=== PATIENT | male | born 1990 | race Caucasian/White ===

== ENCOUNTER 2019-04-05 21:36 | Emergency (ER) | payer OTHER ==
--- NOTE | 2019-04-05 21:39 | EDPHY ---
H & P Time Seen by Provider: 04/05/19 21:38 HPI/ROS: HPI: This is a 28-year-old male who presents with Chief Complaint: Left thumb laceration while at work Location: Left thumb Quality: Laceration Duration: 1 hr prior to arrival Signs and Symptoms: + bleeding, no radiation, + numbness, no weakness, no tingling, no incontinence, no decreased range of motion, no swelling, + pain, no fever Timing: Acute Severity: Moderate Context: Patient presents from [facility] with complaints of accidentally cutting his left thumb while he was at work at a [employer] with a knife prior to arrival. The laceration is located at the DI P joint and patient believes it is "down to the bone." After he cut his finger he applied direct pressure but the bleeding would not stop. Does not take any blood thinners. He complains of numbness at the tip of his left thumb. He rates his name with his right hand but performs all other activities with his left hand. Reports tetanus is current. Modifying Factors: Direct pressure Comment: ROS: A comprehensive 10 system review of systems is otherwise negative aside from elements mentioned in the history of present illness. MEDICAL/SURGICAL/SOCIAL HISTORY: Medical history: Generally healthy. Does not take any regular medications. Surgical history: Denies Social history: Employed. Drinks alcohol socially. CONSTITUTIONAL: Polite and cooperative adult white male, awake and alert, no obvious distress HEENT: Atraumatic and normocephalic, PERRL, EOMI. Nares patent; no rhinorrhea; no nasal mucosal edema. Tympanic membranes clear. Oropharynx clear, no exudate and moist pink mucosa. Airway patent. No lymphadenopathy. No meningismus. Cardiovascular: Normal S1/S2, regular rate, regular rhythm, without murmur rub or gallop. PULMONARY/CHEST: Symmetrical and nontender. Clear to auscultation bilaterally. Good air movement. No accessory muscle usage. ABDOMEN: Soft, nondistended, nontender, no rebound, no guarding, no peritoneal signs, no masses or organomegaly. No CVAT. 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 Scant amount of active bleeding noted. no clubbing , no cyanosis or edema. NEUROLOGICAL: no focal neuro deficits. GCS 15. SKIN: Warm and dry, no erythema. no rash. Good capillary refill. Source: Patient, RN/MD Exam Limitations: No limitations - Personal History Current Tetanus/Diphtheria Vaccine: Yes Current Tetanus Diphtheria and Acellular Pertussis (TDAP): Yes Constitutional: Initial Vital Signs Temperature (C) 37.2 C 04/05/19 21:38 Heart Rate 105 H 04/05/19 21:38 Respiratory Rate 16 04/05/19 21:38 Blood Pressure 158/88 H 04/05/19 21:38 O2 Sat (%) 93 04/05/19 21:38 O2 Delivery Mode Room Air Allergies/Adverse Reactions: Iodinated Contrast- Oral and IV Dye Allergy (Verified 04/05/19 21:41) Home Medications: Medication Instructions Recorded NK [No Known Home Meds] 04/05/19 Medical Decision Making Procedures: Procedure: Laceration repair. Verbal consent was obtained from the patient. The 5.5 cm, deep, simple laceration on the left thumb was anesthetized in the usual fashion using a digital block of 4 cc of 1% lidocaine without epinephrine. The wound was irrigated, draped and explored to its base with a gloved finger. There were no deep structures involved. No tendon injury was identified. The wound was repaired with #9, 4-0 Prolene. Good hemostasis was achieved and patient tolerated procedure well. Surgifoam, Xeroform and clean sterile dressing applied. The procedure was performed by myself. Procedure: Splint placement. A aluminum cage finger splint was applied. After application of the splint I returned and re-examined the patient. The splint was adequately immobilizing the joint and distal to the splint the patient's circulation and sensation was intact. ED Course/Re-evaluation: Tetanus booster up-to-date. Left thumb x-ray ordered my read shows no fracture, no foreign body, no dislocation Local anesthesia digital block provided and copiously irrigated Laceration repaired with #9 nonabsorbable sutures Surgifoam, Xeroform and clean sterile dressing placed and then aluminum finger cage splint applied Verbal and written wound care instructions provided Follow-up with Orthopedics to evaluate for nerve or tendon injury. No signs of neurovascular compromise/tenting of skin/compartment syndrome/ extremities and joints examined above and below area of concern and are neurovascularly intact. This patient was seen under the supervision of my secondary supervising physician. I evaluated and cared for this patient with attending. Differential Diagnosis: Differential diagnosis includes but is not limited to laceration, nerve injury, tendon injury, foreign body. Departure - Departure Disposition: Home, Routine, Self-Care Clinical Impression: Laceration of left thumb with complication Qualifiers: Encounter type: initial encounter Qualified Code(s): S61.012A - Laceration without foreign body of left thumb without damage to nail, initial encounter Condition: Good Instructions: Care For Your Stitches (ED), Finger Laceration (ED), Tendon Laceration (ED) Additional Instructions: Keep the splint and dressing dry and in place for 72 hours. After 72 hours, you may remove the dressing; wash the site daily with mild soap and water; then pat dry. Apply topical antibiotic ointment and keep covered with sterile dressing until fully healed. Do not soak in a bathtub or go swimming until sutures are removed. Take Tylenol 650 mg every 4 hours and/or Ibuprofen 600 mg every 8 hours with food as needed for pain. Follow up with Orthopedics in 5-10 days at which time they will evaluate you and determine if there is any nerve or tendon injury. Wound Care Follow-Up: Removal of sutures in [ 10-14 ] days. Suture removal is complimentary in uncomplicated cases. Infection or abnormal findings would require reevaluation by the MD. In that case, you may be billed. Work Related Injury: Date of Injury (if different from Date of Service): 04/05/19 Your work restrictions, if any, last only until the next business day. Formal evaluation for work restrictions beyond one day must be arranged through your employer's workman's compensation provider. Restrictions are noted below: Do not soak left thumb in dish water or go swimming until sutures are removed in 10-14 days. Referrals: Deni Crespo MD [Medical Doctor] - As per Instructions
[2019-04-05 21:41] VITALS: BP 158/88
== END 2019-04-05 22:30 | disposition home or self-care (01) ==
PROC: 0HQGXZZ Repair Left Hand Skin, External Approach (ICD-10-PCS; principal; 2019-04-05)
DX: S61.012A Laceration without foreign body of left thumb without damage to nail, initial encounter (principal); W26.0XXA Contact with knife, initial encounter; Y99.0 Civilian activity done for income or pay; Y92.511 Restaurant or cafe as the place of occurrence of the external cause
CPT/HCPCS: L3925